=== PATIENT | female | born 1960 | race Caucasian/White ===

== ENCOUNTER → 2024-08-11 | Outpatient (CLI) | payer BC ==
--- NOTE | 2024-08-11 18:35 | NM ---
EXAMINATION TYPE: NM DatScan Brain SPECT DATE OF EXAM: 08/11/2024 COMPARISON: NONE CLINICAL INDICATION: Female, 63 years old with history of R25.1 tremor; TECHNIQUE: 10 drops of Lugol's solution was administered 1 hour prior to injection as a thyroid bloc maggy agent. After the administration of 5.17 mCi I-123 Ioflupane DaTscan. Images obtained 3 hours p ost injection. SPECT images of the brain were acquired with axial and coronal reconstructions. FINDINGS: There is normal, symmetric bilateral striatal activity. No abnormal increased background activity. IMPRESSION: Scintigraphic findings are against a diagnosis of Parkinson's disease or a parkinsonian syndrome and can be seen in normal individuals or in those with essential tremor. [facility], , 08/11/2024 6:32 PM
== END | disposition home or self-care (01) ==
LOC: RADNMMAIN 06:36
PROVIDERS: ATTEND Psychiatry & Neurology Neurology
DX: R25.1 Tremor, unspecified (principal)
CPT/HCPCS: 78803; A9584